=== PATIENT | female | born 1955 | race Caucasian/White ===

== ENCOUNTER → 2020-07-22 06:59 | Outpatient (CLI) | payer MEDICARE, SELFPAY ==
--- NOTE | 2020-07-23 14:00 | STRESSREP ---
Stress Test Report Date: 07/22/2020 Procedure: Pharmacologic stress nuclear imaging study Indications: Chest pain, CAD Consent: Per the patient Procedure: The patient underwent pharmacologic (Regadenoson) evaluation with a peak heart rate of 82 beats per minute (52%predicted maximal heart rate) and a peak blood pressure of 128/72 mmHg. The baseline ECG demonstrated normal sinus rhythm. EKG during lexiscan infusion revealed no significant ischemic changes. EKG post infusion revealed no significant ischemic changes [There were no cardiac dysrhythmias pretest, during pharmacologic infusion, or recovery]. [There was no complaint of chest discomfort during pharmacologic infusion or recovery]. The examination was discontinued secondary to completion of protocol. Impression: 1. Lexiscan stress test test is negative for Lexiscan infusion induced EKG changes of ischemia. 2. Lexiscan stress test test is negative for Lexiscan infusion induced chest pain. 3. Results of the nuclear portion of the test is as below Myocardial perfusion imaging study: Technique: The patient was injected with 15 millicuries of technetium 99m Cardiolite and subsequently rest SPECT Cardiolite nuclear imaging was obtained in the horizontal long, vertical long, and short axis views. The patient underwent pharmacologic (Regadenoson) evaluation. Please see above for details. The patient was injected with 45 millicuries of technetium 99m Cardiolite and subsequently stress SPECT Cardiolite nuclear imaging was obtained in the horizontal long, vertical long, and short axis views. A gated Cardiolite study at peak stress was obtained. Interpretation: Rest and stress SPECT Cardiolite nuclear imaging status post realignment, normalization, and attenuation correction demonstrate overall normal myocardial radioisotope uptake. Gated images reveal no significant regional wall motion abnormalities. The reported LVEF is greater than 70%. Impression: 1. There is no evidence of significant ischemia or infarction. 2. Estimated ejection fraction is greater than 70%. This note was generated with [employer] software. It may contain incorrect words, spelling, and punctuation that were not noted in checking the note before signing.
== END ==
PROVIDERS: PCP Preventive Medicine Occupational Medicine; Referring Provider Preventive Medicine Occupational Medicine; Visit Provider Preventive Medicine Occupational Medicine
DX: R07.9 Chest pain, unspecified (principal); Z98.61 Coronary angioplasty status
CPT/HCPCS: 78452; 93017; A9500; A4216; J2785

== ENCOUNTER → 2020-12-01 14:50 | Outpatient (CLI) | payer MEDICARE, SELFPAY ==
[2020-12-01 17:52] LABS: Absolute Lymphocyte Count 2.26 X10^3/uL (0.83-4.51); Absolute Neutrophil Count 2.9 X10^3/uL (2.0-7.7); Basophil# 0.04 X10^3/uL; Basophil% 0.7 % (0-1); Eosinophil# 0.13 X10^3/uL; Eosinophils% 2.3 % (0-5); Hematocrit 38.6 % (37-47); Hemoglobin 12.7 g/dL (12.0-15.0); Lymphocyte # 2.26 X10^3/ul (4.0); Lymphocyte % 39.5 % (19-41); Mean Corp Hgb Conc 32.9 g/dL (32-36); Mean Corpuscular Hgb 31.6 pg (27.0-32.0); Mean Platelet Vol. 9.5 fl (6.2-12.0); Monocyte# 0.36 X10^3/uL; Monocyte% 6.3 % (0-10); NRBC Flagged by Analyzer 0 % (0-5); Neutrophil # 2.92 X10^3/uL (2.7-7.7); Platelet Count 221 K/mm3 (150-450); RBC Distribution Width CV 12.9 % (11.6-14.6); RBC Distribution Width SD 45.2 fl (35.1-43.9); Red Blood Count 4.02 M/mm3 (4.2-5.4); White Blood Count 5.7 K/mm3 (4.4-11.0)
[2020-12-01 18:20] LABS: AST(SGOT) 13 U/L (15-37); Alanine Aminotransfer ALT/SGPT 25 U/L (13-56); Alkaline Phosphatase 76 U/L (45-117); Anion Gap 8 (5-15); BUN 20 mg/dL (7-18); Calcium,Total 9.6 mg/dL (8.5-10.1); Chloride 103 mmol/L (98-107); EST Glomerular Filtration Rate 59 mL/min (>60); Est Glom Filt Rate - Afr Amer 72 mL/min (>60); Globulin 3.7 g/dL (2.2-4.2); Glucose 87 mg/dL (74-106); Potassium 3.8 mmol/L (3.5-5.1); Protein, Total 7.7 g/dL (6.4-8.2); Sodium Level 140 mmol/L (136-145)
[2020-12-02 09:27] LABS: Hepatitis B Surface Antibody Non-Reactive; Hepatitis B Surface Antigen Non-Reactive (Nonreactive); Hepatitis C Antibody Non-Reactive (Nonreactive)
[2020-12-05 03:07] LABS: QNTFERON TB Mitogen Value > 10.00 IU/mL (.); QNTFERON TB Nil Value 0.11 IU/mL (.); QNTFERON TB1+ Ag Value 0.07 IU/mL (.)
[2020-12-05 08:47] LABS: Hepatitis B Core Ab Total Negative (Negative); QNTIFERON TB Positive Criteria Negative (Negative)
== END ==
PROVIDERS: PCP Preventive Medicine Occupational Medicine; Referring Provider Dermatology; Visit Provider Dermatology
DX: L40.0 Psoriasis vulgaris (principal); L40.59 Other psoriatic arthropathy; Z79.899 Other long term (current) drug therapy
CPT/HCPCS: 36415; 80048; 80076; 85025; 86480; 86704; 86706; 86803; 87340

== ENCOUNTER → 2021-02-09 08:48 | Outpatient (CLI) | payer MEDICARE, SELFPAY ==
--- NOTE | 2021-02-09 08:51 | RAD_ITS ---
STUDY: X-RAY CHEST REASON FOR EXAM: Female, 65 years old. Worsening shortness of breath TECHNIQUE: 2 PA and lateral views of the chest. COMPARISON: None. FINDINGS: Lungs are mildly hyperexpanded with chronic interstitial changes. No superimposed acute pulmonary process. There is no demonstrated pleural abnormality. Normal size heart. Normal mediastinum and renato. Normal visualized pulmonary arteries. Normal visualized aortic arch and descending thoracic aorta. There are diffuse degenerative changes of the visualized thoracic spine. Normal visualized ribs, clavicles, and shoulders. There is no demonstrated abnormality of the visualized soft tissue structures of the upper abdomen. RAD/Chest PA and Lateral IMPRESSION: Mildly hyperexpanded lungs with chronic interstitial changes, no superimposed acute pulmonary process Electronically Signed: Josh Chavez MD at 10:14 EDT , Service support ,
== END ==
PROVIDERS: PCP Preventive Medicine Occupational Medicine; Referring Provider Internal Medicine Pulmonary Disease; Visit Provider Internal Medicine Pulmonary Disease
DX: J44.9 Chronic obstructive pulmonary disease, unspecified (principal); R06.00 Dyspnea, unspecified; R05 Cough
CPT/HCPCS: 71046; 87070; 87205

== ENCOUNTER → 2022-04-06 | Outpatient (CLI) | payer MEDICARE, SELFPAY ==
--- NOTE | 2022-04-06 14:15 | CT_ITS ---
STUDY: LOW DOSE CT LUNG CANCER SCREENING REASON FOR EXAM: Female, 66 years old. 1PPD X 40 YEARS COPD RADIATION DOSAGE (If Supplied By Facility): CTDIvol = ( 4.02 ) mGy, DLP = ( 127.37 ) mGycm TECHNIQUE: No contrast was administered. Low dose technique was utilized (average mAS-38 and kVp 120). 1.25 mm axial source images with a slice interval of 1.25-mm were reconstructed in lung windows. 2.5 mm axial source images with a slice interval of 2.5-mm were reconstructed in lung windows. 5.0 mm axial source images with a slice interval of 5.0-mm were reconstructed in soft tissue windows. COMPARISON: Comparison is made with prior chest radiograph dated 02/09/2021. NODULES: 4.4 mm noncalcified nodule in the anterior aspect of the superior segment of the right lower lobe adjacent to the major fissure as seen on axial image #107 and coronal image #195. Emphysema: Hyperinflation. Mild degree of emphysematous changes. Linear scarring at the lung bases. Endobronchial lesion: Unremarkable Aorta: Atherosclerotic plaque formation. CORONARY ARTERIES: Coronary artery calcification is seen. Heart: Unremarkable Pulmonary artery: Unremarkable Mediastinal nodes: Unremarkable Other chest and abdominal findings: CT/Low Dose CT Lung Screening IMPRESSION: Lung-RADS category 2 - Continue annual screening with LDCT in 12 months. IMPORTANT NOTES FOR USE: ACR Lung-RADS Version 1.1 Assessment Categories Release Date: 2018 Category: Coded 0-4 bases on nodule(s) with highest degree of suspicion. Negative screen is defined as categories 1 and 2; a positive screen is defined as categories 3 and 4. Category 3 and 4A nodules that are unchanged on interval CT should be coded as category 2, and individuals returned to screening in 12 months. Category 4X: Category 3 or 4 nodules with additional imaging findings that increase the suspicion of lung cancer, such as spiculation, GGN that doubles in size in 1 year, enlarged lymph notes, etc. Category Modifiers: S (significant finding unrelated to lung cancer) Electronically Signed: Fausto Baldwin MD at 14:59 EDT ,
== END | disposition home or self-care (01) ==
LOC: CT 14:12
PROVIDERS: PCP Preventive Medicine Occupational Medicine; Referring Provider Internal Medicine Pulmonary Disease; Visit Provider Internal Medicine Pulmonary Disease
DX: Z87.891 Personal history of nicotine dependence (principal)
CPT/HCPCS: 71271

== ENCOUNTER → 2023-04-19 | Outpatient (CLI) | payer MEDICARE, SELFPAY ==
--- NOTE | 2023-04-19 08:00 | CT_ITS ---
STUDY: LOW DOSE CT LUNG CANCER SCREENING REASON FOR EXAM: Female, 67 years old. HX OF NICOTINE DEPENDENCE. ex smoker 13 years. smoked 2ppd x 42 years. copd RADIATION DOSAGE (If Supplied By Facility): CTDIvol = ( 4.02 ) mGy, DLP = ( 129.38 ) mGycm TECHNIQUE: No contrast was administered. Low dose technique was utilized (average mAS-38 and kVp 120). 1.25 mm axial source images with a slice interval of 1.25-mm were reconstructed in lung windows. 2.5 mm axial source images with a slice interval of 2.5-mm were reconstructed in lung windows. 5.0 mm axial source images with a slice interval of 5.0-mm were reconstructed in soft tissue windows. COMPARISON: April 06, 2022 NODULES: Nodule #: 1 category 4a Density: Solid Lung location: Right lower lobe: Less than 1 cm from pleural fissure Location in series: Series Number: 2 Image: 101 Size - D1 x D2 mm: mm: 7.3 average diameter Margin: Well-defined Shape: Triangular Calcification: None Fat: Temporal comparison: Slightly increased in size Nodule #: 2 Density: Solid Lung location: Right upper lobe: Less than 1 cm from pleura Location in series: Series Number: 2 Image: 56 Size - D1 x D2 mm: mm: 1.3 average diameter Margin: Well-defined Shape: Round Calcification: None Fat: Temporal comparison: Unchanged Nodule #: 3 Density: too small to characterize Lung location: Right upper lobe: Less than 1 cm from pleural fissure Location in series: Series Number: 2 Image: 109 Size - D1 x D2 mm: mm: 1 average diameter Margin: Well-defined Shape: Round Calcification: None Fat: Temporal comparison: Unchanged Nodule #: 4 Density: Solid Lung location: Right middle lobe: 2.5 cm from pleura Location in series: Series Number: 2 Image: 137 Size - D1 x D2 mm: mm: 5.2 average diameter Margin: Well-defined Shape: Triangular Calcification: None Fat: Temporal comparison: Unchanged Nodule #: 5 Density: too small to characterize Lung location: Right lower lobe: Less than 1 cm from pleura fissure Location in series: Series Number: 2 Image: 140 Size - D1 x D2 mm: mm: 1 average diameter Margin: Well-defined Shape: too small to characterize Calcification: None Fat: Temporal comparison: Unchanged Nodule #: 6 Density: too small to characterize Lung location: Right lower lobe: Less than 1 cm from pleura fissure Location in series: Series Number: 2 Image: 168 Size - D1 x D2 mm: mm: 1.9 average diameter Margin: Well-defined Shape: too small to characterize Calcification: None Fat: Temporal comparison: Unchanged Nodule #: 7 Density: too small to characterize Lung location: Right lower lobe: Less than 1 cm from pleura Location in series: Series Number: 2 Image: 173 Size - D1 x D2 mm: mm: 3.3 average diameter Margin: Well-defined Shape: too small to characterize Calcification: None Fat: Temporal comparison: Unchanged Nodule #: 8 Density: too small to characterize Lung location: Left upper lobe: Less than 1 cm from pleura Location in series: Series Number: 2 Image: 42 Size - D1 x D2 mm: mm: 2.9 average diameter Margin: Well-defined Shape: too small to characterize Calcification: None Fat: Temporal comparison: Unchanged Nodule #: 9 Density: too small to characterize Lung location: Left upper lobe: Less than 2 cm from pleura Location in series: Series Number: 2 Image: 47 Size - D1 x D2 mm: mm 2.7 average diameter Margin: Well-defined Shape: too small to characterize Calcification: None Fat: Temporal comparison: Unchanged Nodule #: 10 Density: too small to characterize Lung location: Left upper lobe 1 cm from pleura fissure Location in series: Series Number: 2 Image: 48 Size - D1 x D2 mm: mm 2.0 average diameter Margin: Well-defined Shape: too small to characterize Calcification: None Fat: Temporal comparison: Unchanged Nodule #: 11 Density: Solid Lung location: Lingular lobe 1.5 cm from pleura Location in series: Series Number: 2 Image: 124 Size - D1 x D2 mm: mm 6.1 average diameter Margin: Well-defined Shape: Triangular Calcification: None Fat: Temporal comparison: Unchanged Nodule #: 12 Density: Solid Lung location: Left upper lobe 1cm from pleura Location in series: Series Number: 2 Image: 68 Size - D1 x D2 mm: mm 2.7 average diameter Margin: Well-defined Shape: Triangular Calcification: None Fat: Temporal comparison: Unchanged Total lung nodules (excluding granulomas): 12 Emphysema: Mild diffuse Endobronchial lesion: None Aorta: Unremarkable CORONARY ARTERIES: Coronary artery calcification present Heart: Not enlarged Pulmonary artery: Unremarkable Mediastinal nodes: None Other chest and abdominal findings: None CT/Low Dose CT Lung Screening IMPRESSION: Lung RADS category 4a 3 month follow-up recommended. IMPORTANT NOTES FOR USE: ACR Lung-RADS Version 1.1 Assessment Categories Release Date: 2018 Category: Coded 0-4 bases on nodule(s) with highest degree of suspicion. Negative screen is defined as categories 1 and 2; a positive screen is defined as categories 3 and 4. Category 3 and 4A nodules that are unchanged on interval CT should be coded as category 2, and individuals returned to screening in 12 months. Category 4X: Category 3 or 4 nodules with additional imaging findings that increase the suspicion of lung cancer, such as spiculation, GGN that doubles in size in 1 year, enlarged lymph notes, etc. Category Modifiers: S (significant finding unrelated to lung cancer) Electronically Signed: Ugo Moore, at 9:06 EDT Reading Location ID and State: [address] [place] [address] Tel , Service support ,
== END | disposition home or self-care (01) ==
LOC: CT 07:52
PROVIDERS: PCP Preventive Medicine Occupational Medicine; Referring Provider Internal Medicine Pulmonary Disease; Visit Provider Internal Medicine Pulmonary Disease
DX: Z12.2 Encounter for screening for malignant neoplasm of respiratory organs (principal); Z87.891 Personal history of nicotine dependence
CPT/HCPCS: 71271

== ENCOUNTER → 2024-12-02 | Outpatient (CLI) | payer MEDICARE, SELFPAY ==
--- NOTE | 2024-12-02 10:41 | RAD_ITS ---
PROCEDURE: CHEST PA AND LATERAL (RADCXR), 12/02/2024 REASON FOR EXAM: COPD TECHNIQUE: PA and lateral views of the chest were obtained. COMPARISON: 04/19/2023 FINDINGS: Heart: Unremarkable. Mediastinum: Mild atherosclerosis in the arch. Lungs/pleura: No focal consolidation. No sizeable pleural effusion or visible pneumothorax. Nodules better seen on comparison CT. Bones: Suspect demineralization. Multilevel spondylosis. Lines and support devices: None. Other: Upper abdominal surgical clips on the lateral view. RAD/Chest PA and Lateral IMPRESSION: 1. No visible acute cardiopulmonary findings 2. Nodules better seen on CT 04/19/2023. Follow-up CT again recommended as pre viously suggested, unless performed elsewhere. 3. Additional description as above. Reading Location: [id number]
== END | disposition home or self-care (01) ==
LOC: MTRAD 10:40
PROVIDERS: PCP Preventive Medicine Occupational Medicine; Referring Provider Internal Medicine Pulmonary Disease; Visit Provider Internal Medicine Pulmonary Disease
DX: J44.9 Chronic obstructive pulmonary disease, unspecified (principal)
CPT/HCPCS: 71046